=== PATIENT | male | born 1955 | race Caucasian/White ===

== ENCOUNTER → 2019-03-24 | Day surgery (SDC) | payer BC ==
[~2019-03-24] MED LIST: ASPIRIN81 MG PO; BYSTOLIC5 MG PO; EPHEDRINE SULFATE INJ 50 MG/10 ML SYR ONE; FENTANYL CITRATE/PF 100MCG/2 ML INJ ONE; HYOSCYAMINE 0.125 MG TAB ONE; LOSARTAN-HCTZ1 EAC1 PO; METOPROLOL PO; MIDAZOLAM HCL 2 MG/2 ML VIAL ONE; PROPOFOL IV EMULSION 10 MG/ML 50 ML VIAL ONE; ZOCOR10 MG PO
--- OUTSIDE RECORDS SUMMARY | 2019-03-24 07:45 | XMS REPORT | Clinical Summary ---
Author Author [facility]to [facility]anda[facility] Organization [facility] Address Unknown Phone Unavailable Care Team Providers Care Scuba Diving Instructor Name Role Phone Asked, No Pcp PCP Unavailable Allergies No Known Allergies Medications End Date Status Medication Sig Dispensed Refills Start Date Active losartan-hydrochlorothiaz TK 1 T PO QD 0 karis (HYZAAR) 100-12.5 mg 8 per tablet Active metoprolol tartrate TK 1 T PO BID 1 (LOPRESSOR) 25 mg tablet 8 Active CIALIS 5 mg tablet TK 1 T PO QD 0 8 Active multivitamin with Take 1 tablet 0 minerals tablet by mouth daily. Active cetirizine (ZyrTEC) 10 MG Take 10 mg by 0 tablet mouth daily. Active ranitidine (ZANTAC) 150 Take 150 mg 0 MG tablet by mouth 2 (two) times a day. Active calcium citrate-vitamin Take 1 tablet 0 D3 (CITRACAL+D) 315-200 by mouth 2 mg-unit per tablet (two) times a day. Active cyanocobalamin, vitamin Place 2,500 0 B-12, 5,000 mcg tablet, mcg under the sublingual tongue daily. Active Problems No known active problems Social History Date Tobacco Use Types Packs/Day Years Used Never Assessed Sex Assigned at Date Recorded Not on file Industry Job Start Date Occupation Not on file Not on file Not on file Travel End Travel History Travel Start No recent travel history available. Last Filed Vital Signs Not on file Plan of Treatment Health Maintenance Due Date Last Done Comments COLONOSCOPY SCREENING 2006 SHINGLES VACCINES (#1) 2006 INFLUENZA VACCINE 04/17/2019 Results Not on fileafter 2018 Insurance Type Payer Benefit Subscriber ID Effective Phone Address Plan / Dates Group PPO BCBS BCBS xxxxxxxxxxxx 2008- CHOICE Present PPO/ELIANA REDD PPO PPO HOLGER [employer]REIRE xxxxxxxxxxxx 2008- JASMIN LAMBERT Present Advance Directives Patient has advance care planning documents on file. For more information, wojciech candelario contact: Lamonte Vasquez [phone] [place] [address]
--- OUTSIDE RECORDS SUMMARY | 2019-03-24 07:45 | XMS REPORT ---
Author Author [facility] Address Unknown Phone Unavailable Care Team Providers Care Pellet Post Inspector Name Role Phone Royce SIM Unavailable Unavailable Tania KLEIN Unavailable Unavailable Problems This patient has no known problems. Allergies, Adverse Reactions, Alerts This patient has no known allergies or adverse reactions. Medications This patient has no known medications. Results Test Description Test Time Test Comments Text Results Atomic Results Result Comments CHEST SINGLE (PORTABLE) [place] [address] Patient Name: MARIZA SOLIS MR #: [id number] : 1955 Age/Sex: 62/M Req #: [id number] Adm Physician: Ordered by: NORTH SIM MD Report #: [id number] Location: ER Room/Bed: Procedure: [id number] DX/CHEST SINGLE (PORTABLE) Exam Date: 06/06/17 Exam Time: 919 REPORT STATUS: Signed PROCEDURE: CHEST SINGLE (PORTABLE) COMPARISON: None. INDICATIONS: HIGH BLOOD PRESSURE, NUMB FACE FINDINGS: LUNGS: No consolidations or edema. PLEURA: No effusions or pneumothorax. HEART T MEDIASTINUM: The heart is within normal size-limits. BONES T SOFT TISSUES: No acute findings. CONCLUSION: No acute thoracic abnormality. Dictated by: Abhishek De León M.D. on 06/06/2017 at 10:05 Electronically approved by: Abhishek De León M.D. on 06/06/2017 at 10:05 Dictated By: ABHISHEK DE LEÓN MD 1005 Transcribed By: MARCIAL on 06/06/17 1005 COPY TO: NORTH SIM MD CT BRAIN WO [place] [address] Patient Name: MARIZA SOLIS MR #: [id number] : 1955 Age/Sex: 62/M Req #: [id number] Adm Physician: Ordered by: NORTH SIM MD Report #: [id number] Location: ER Room/Bed: Procedure: [id number] CT/CT BRAIN WO Exam Date: 06/06/17 Exam Time: 909 REPORT STATUS: Signed Examination: CT BRAIN WITHOUT CONTRAST History:Tingling of the lips, tongue and face. Comparison studies:None Technique: Axial images were obtained from the skull base to the vertex. Coronal and sagittal images reconstructed from the axial data. Intravenous contrast: None Findings: Scalp: No abnormalities. Bones: No fractures, blastic or lytic lesions. Brain sulci: Appropriate for age. Ventricles: Normal in size and configuration. No hydrocephalus. Extra-axial space: No abnormalities. Parenchyma: No abnormal densities. No masses, hemorrhage, acute or chronic vascular insults. Sellar/suprasellar region: No abnormalities. Craniocervical junction: Patent foramen magnum. No Chiari one malformation. Incidental findings: None. Impression: No intracranial abnormalities. Signed by: Dr. Cammie Thurman M.D. on 06/06/2017 10:23 AM Dictated By: CAMMIE RIZO MD 1023 Transcribed By: ANDREA on 06/06/17 1023 COPY TO: NORTH SIM MD HAND 3+ VIEWS RIGHT [place] [address] Patient Name: MARIZA SOLIS MR #: [id number] : 1955 Age/Sex: 62/M Req #: [id number] Adm Physician: Ordered by: SOUMYA KLEIN MD Report #: [id number] Location: [facility] Room/Bed: Procedure: [id number] DX/HAND 3+ VIEWS RIGHT Exam Date: 06/05/17 Exam Time: 1450 REPORT STATUS: Signed PROCEDURE: HAND RIGHT 3 VIEWS AP T LAT COMPARISON: None. INDICATIONS: PAINFUL, SWOLLEN JOINT,RT. RING FINGER FINDINGS: There are no fractures, dislocations, lytic or blastic lesions. The bones are well-mineralized. The soft-tissues are unremarkable. Mild degenerative changes in the DIP and PIP joints. CONCLUSION: Mild osteoarthrosis. No bony abnormalities at the fourth finger PIP joint. Dictated by: Jennifer Asif M.D. on 06/05/2017 at 16:00 Electronically approved by: Jennifer Asif M.D. on 06/05/2017 at 16:00 Dictated By: JENNIFER ASIF MD 1600 Transcribed By: MARCIAL on 06/05/17 1600 COPY TO: SOUMYA KLEIN MD
[2019-03-24 12:25] VITALS: BP 131/89
--- NOTE | 2019-03-24 12:45 | Operative Report ---
DATE OF PROCEDURE: 03/24/2019 SURGEON: Filipe Lora MD PROCEDURES: EGD with biopsies and esophageal dilatation and colonoscopy with polypectomy. INDICATIONS FOR EGD: Dysphagia, history of heartburn. INDICATIONS FOR COLONOSCOPY: Surveillance colonoscopy, personal history of colon polyps. MEDICATIONS: The patient was done under MAC, please see anesthesiologist's note. PROCEDURE IN DETAIL: With the patient in left lateral decubitus position, flexible fiberoptic Olympus gastroscope was introduced into the esophagus under direct visualization without any difficulty. There was some patchy erythema noted in distal esophagus. Esophagus was then dilated to size 52-Lithuanian Mcnair. The scope was then advanced with ease into the stomach and mucosa overlying the antrum and the body revealed some patchy erythema, nop-cisci-[id number]-moderate edema and biopsies were obtained, and sent to stain for H. pylori. The pylorus was of normal contour and shape, it was intubated with ease and the scope was advanced all the way to the second portion of the duodenum. The scope was then withdrawn slowly. Mucosa overlying the proximal second portion and the duodenal bulb appeared to be within normal limits. The scope was then withdrawn back into the stomach and retroflexed, and mucosa overlying the fundus and the cardia appeared to be within normal limits. The scope was then straightened out, it was subsequently withdrawn. The patient tolerated the procedure well. IMPRESSION: 1. Mild distal esophagitis. 2. Esophageal stricture at GE junction, dilated to size 52-Lithuanian Mcnair. 3. Gastritis, biopsied, biopsies sent to stain for H. pylori. PLAN: Follow up histology. Initiate Protonix 40 mg one p.o. q.a.m. a.c. The patient was then turned around and after adequate lubrication of the anal canal, flexible fiberoptic Olympus colonoscope was inserted into the rectum with ease and advanced all the way to the cecum. It was then withdrawn slowly. Mucosa overlying the cecum appeared to be within normal limits. One polyp was snared from the ascending colon. The transverse colon appeared to be within normal limits. One polyp was snared from the descending colon. Diverticular disease was noted to involve the distal descending and the sigmoid colon. Two polyps were snared from the sigmoid colon. One polyp was hot biopsied from the rectum. The scope was then retroflexed into the distal rectum. Small internal hemorrhoids were noted, none of which was actively bleeding. The scope was then straightened out, it was subsequently withdrawn. The patient tolerated the procedure well. IMPRESSION: 1. Ascending colon polyp, snared. 2. Descending colon polyp, snared. 3. Diverticulosis. 4. Sigmoid colon polyps x2, snared. 5. Rectal polyp x1, hot biopsied. 6. Internal hemorrhoids, none actively bleeding. PLAN: Follow up histology. Initiate high-fiber, low-fat diet. Initiate high-fiber supplement. The patient might benefit from a followup colonoscopy in 3 years. Filipe Lora MD [place] /[id number] cc: Isreal Allen MD
== END | disposition home or self-care (01) ==
LOC: ENDO 07:42
PROVIDERS: ATTEND Internal Medicine Gastroenterology
DX: K22.2 Esophageal obstruction (principal); D12.2 Benign neoplasm of ascending colon; D12.5 Benign neoplasm of sigmoid colon; K62.1 Rectal polyp; K29.70 Gastritis, unspecified, without bleeding; K20.9 Esophagitis, unspecified; K57.30 Diverticulosis of large intestine without perforation or abscess without bleeding; K64.8 Other hemorrhoids; I10 Essential (primary) hypertension; I45.10 Unspecified right bundle-branch block; Z68.36 Body mass index [BMI] 36.0-36.9, adult; Z86.19 Personal history of other infectious and parasitic diseases
CPT/HCPCS: 43239; 43450; 45384; 45385; 93005; J2250; J2704; 45378; J3010

== ENCOUNTER → 2025-01-02 | Day surgery (SDC) | payer MEDICARE ==
[2024-12-29 10:49] LABS: BASOPHILS # (AUTO) 0.1 (0.0-0.1); BASOPHILS % 0.5 % (0.0-1.0); EOSINOPHILS # (AUTO) 0.5 (0.0-0.4); HEMATOCRIT 46.2 % (38.2-49.6); HEMOGLOBIN 16.9 g/dL (14.0-18.0); LYMPHOCYTES # (AUTO) 2.2 (1.0-3.2); LYMPHOCYTES % 23.8 % (18.0-39.1); MEAN CORPUSCULAR HEMOGLOBIN 35.4 pg (28-32); MEAN CORPUSCULAR HGB CONC 36.6 g/dL (31-35); MEAN CORPUSCULAR VOLUME 96.7 fL (81-99); MONOCYTES # (AUTO) 0.9 (0.2-0.8); MONOCYTES % 9.4 % (4.4-11.3); NEUTROPHILS # (AUTO) 5.6 (2.1-6.9); NEUTROPHILS % 60.9 % (38.7-80.0); PLATELET COUNT 185 x10e3/uL (140-360); RED BLOOD COUNT 4.78 x10e6/uL (4.3-5.7); WHITE BLOOD COUNT 9.27 x10e3/uL (4.8-10.8)
[~2025-01-02] MED LIST changes: +ALL DAY ALL1 MG/1 ML; +ASHWAGANDHA62.5 MG; +B-121000 MC2; +B-COMPLEX1 EACH; +D3-5000125 MCG; -EPHEDRINE SULFATE INJ 50 MG/10 ML SYR ONE; -FENTANYL CITRATE/PF 100MCG/2 ML INJ ONE; +GLUCAGON FOR INJ 1 MG VIAL ONE; +GLYCOPYRROLATE INJ 0.2 MG/ML VIAL ONE; +HYALURONIC ACID60 MG; -HYOSCYAMINE 0.125 MG TAB ONE; +LIDOCAINE HCL 2% LOCAL INJ 5 ML SDV VIAL INJ ONE; +METOCLOPRAMIDE HCL 10 MG/2ML VIAL ONE; +METOPROLOL SUCC25 MG PO; +NEXIUM20 MG PO; +OLMESARTAN-HCT1 EAC1 PO; +PROPOFOL IV EMULSION 10 MG/ML 20 ML VIAL ONE; -PROPOFOL IV EMULSION 10 MG/ML 50 ML VIAL ONE; +VITAMIN C1000 MG PO
[2025-01-02] MEDS: LACTATED RINGER'S 1,000 ML ONE (12:20)
[2025-01-02 14:39] VITALS: TEMP 98.1
[2025-01-02 15:00] VITALS: BP 136/72; PULSE 76; RESP 18; O2SAT 98
== END | disposition home or self-care (01) ==
LOC: OR 11:54
PROVIDERS: ATTEND Internal Medicine Gastroenterology
DX: K29.50 Unspecified chronic gastritis without bleeding (principal); D12.3 Benign neoplasm of transverse colon; K22.2 Esophageal obstruction; K20.90 Esophagitis, unspecified without bleeding; K57.30 Diverticulosis of large intestine without perforation or abscess without bleeding; K64.8 Other hemorrhoids; G47.33 Obstructive sleep apnea (adult) (pediatric); E66.9 Obesity, unspecified; I10 Essential (primary) hypertension; Z71.89 Other specified counseling; F17.210 Nicotine dependence, cigarettes, uncomplicated; Z01.810 Encounter for preprocedural cardiovascular examination; Z01.812 Encounter for preprocedural laboratory examination; Z79.899 Other long term (current) drug therapy; Z68.35 Body mass index [BMI] 35.0-35.9, adult; Z71.3 Dietary counseling and surveillance
CPT/HCPCS: 36415; 43239; 43450; 45385; 85025; 88305; 93005; J1610; J2003; J2250; J2470; J2704; J2765; J7121; 88312